=== PATIENT | male | born 1995 | race Caucasian/White ===

== ENCOUNTER → 2017-10-15 | Outpatient (CLI) | payer BC ==
--- NOTE | 2017-10-16 06:42 | PAP/PSG TECHNICIAN REPORT ---
[facility] Unix Administrator Polysomnogram Report Study name: None Report date: 10/16/2017 Study date: 10/15/2017 Referring Physician: DR. VAN CHOPRA Name: PADDY BEAR Interpreting Physician: Herb Morejon D.O. Date of : 1995 Unix Administrator: Richard Chiang RPSSHAN. Sex: Male Age: 22 StudyType: PSG Weight: 188 lbs Height: 22 years, Height 5' 7" BMI: 29.44 Medications: EXCEDRIN, TYLENOL Patient History PATIENT HAS HISTORY OF DAYTIME SLEEPINESS, SNORING AND GASPING FOR AIR. SOMETIMES, HE HAS TROUBLE FALLING ASLEEP AT NIGHT. HE GENERALLY DOES GO TO BED UNTIL 12 OR 1 AM AND SOMETIMES MAY FALL ASLEEP BETWEEN 2 AND 3 AM. HE IS HERE TODAY FOR AN EVALUATION FOR KAREL. ESS = 3 RM 5 Parameters Monitored NPSG: E1-M2, E2-M1, Fp1-M2, Fp2-M1, F3-M2, F4-M2, F4-M1, C3-M2, C4-M2, C4-M1, O1-M2, O2-M2, O2-M1, T3-M2, T4-M1, P3-M2, P4-M1, CHIN1, CHIN2, HR, EKG, Legs, PFLOW, SNOR, FLOW, CFLOW, Tidal Volume, THOR, ABDO, SpO2, PLTH, CPRESS, ETCO2 Wave, ETCO2, pH Sleep Architecture Sleep Stages Time at Lights Off 10:45:43 PM STAGES Time (min.) TST (%) Time at Lights On 5:40:13 AM Wake 214.5 -- Total Recording Time (TRT) 415.00 min. N1 16.5 8 Total Sleep Period (TSP) 368.5 min. N2 116.5 58 Total Sleep Time (TST) 200.0min. N3 53.5 27 Awake Time 214.5 min. REM 13.5 7 Wake after Sleep Onset 168.5 min. Sleep Efficiency (SE) 48 % Sleep Onset Latency (TYSON) 46.0 min. Number of Stage 1 Shifts None Awakenings 7 Stage Changes 32 Number of REM periods 1 REM 13.5 7 REM Latency 355.0 min. NREM 186.5 93 Body Position Analysis Supine Right Left Side Prone Vertical Total Sleep Time (min.) 125.3 77.5 91.8 169.35 0.0 0.0 Total Sleep Time (%) 15% 39% 46% 85 0% N/A% Total Sleep Time REM (min.) 0.0 13.5 0.0 None 0.0 0.0 Total Sleep Time NREM (min.) 30.7 64.0 91.8 None 0.0 0.0 Intermittent Wake (min.) 94.6 54.8 65.0 None 0.0 0.0 Total Sleep Period (%) 28% None None None None None Arousals Myoclonus (PLM) * Events Count Index Events Count Index Spontaneous 30 9 Events Awake (PLMW) 116 32.4 Respiratory 27 8.4 Events Asleep w/ Arousal (PLMA) 2 0.6 PLM 2 1 Events Asleep w/o Arousal (PLMS) 43 12.9 Snoring 1 0 Total Asleep 45 13.5 Total 60 18 Total 161 23 Respiratory Analysis * CA OA MA CH H RERA Total Count 0 5 0 0 53 0 58 Index 0.0 1.5 0.0 0 15.9 0 17.4 Mean Duration 0.0 21.4 0.0 0.00 19.2 0.0 19.4 Longest Duration 0.0 26.4 0.0 0.00 0.0 0.0 28.1 Respiratory Event Summary Total Supine ~Supine Right Left Prone REM NREM Apneas Count 5 5 0 0 0 N/A 0 5 Index 1.5 10 0 0.0 0.0 N/A 0 2 Hypopneas (4% Desat) Count 53 40 13 8 5 N/A 1 52 Index 15.9 78.3 5 6.2 3.3 N/A 4.4 16.7 Apneas & All Hypopneas Count 58 45 13 8 5 N/A 1 57 Index 17.4 88 5 6 3 N/A 4.4 18.3 Respiratory Events (School Program Director+All Hyp+RERA) Count 58 45 13 8 5 N/A 1 57 Index 17.4 88 5 6.2 3.3 N/A 4.4 18.3 Respiratory Related Arousal Count 27 45 0 0 0 N/A 0 28 Index 8.4 55 0 0 0 N/A 0 9 Snoring Analysis Supine Right Left Prone REM NREM Total Snore duration 2.3 min Snores count 10 1 112 N/A 1 122 123 Snore mean duration 1.1 Sec Snores index 20 1 73 N/A 4.4 39.2 36.9 TST with snoring (%) 1.2% Desaturation Event Summary: Minimum %SpO2 Event Count Mean/Min/Max Duration(sec.) Desaturation Index % Time In Bed > 90 74 22.4 / 6.8 / 57.5 11.8 93.0 86 - 90 19 17.9 / 6.8 / 25.5 44.4 6.3 81 - 85 0 N/A 0.0 0.6 76 - 80 0 N/A 0.0 0.0 71 - 75 0 N/A 0.0 0.0 66 - 70 0 N/A 0.0 0.0 61 - 65 0 N/A 0.0 0.0 56 - 60 0 N/A 0.0 0.0 51 - 55 0 N/A 0.0 0.0 < 50 0 N/A 0.0 0.0 Total REM NREM Awake <50% 0.0 min. 0.0 min. 0.0 min. 0.0 min. 51 - 60% 0.0 min. 0.0 min. 0.0 min. 0.0 min. 61 - 70% 0.0 min. 0.0 min. 0.0 min. 0.0 min. 71 - 80% 0.0 min. 0.0 min. 0.0 min. 0.0 min. 81 - 90% 28.2 min. 0.2 min. 21.2 min. 6.9 min. 91 - 100% 376.3 min. 13.3 min. 163.9 min. 199.0 min. Average 92 93 92 93 Minimum SpO2 82 87 82 85 Desaturation Event Index 11.0 4.4 18.3 5.0 # Desat. Events below 89% 43 1 40 2 Time(%) with Saturation below 89% 2.6 0.0 2.5 0.1 Time(min.) with Saturation below 89% 10.6 0.1 10.0 0.6 Time (mins) REM (mins) NREM (mins) % of TST SpO2 Below 90% 48 1 N47 6.3 SpO2 Below 88% 14 0 0 3 Heart Rate Analysis Min (bpm) Max (bpm) Average (bpm) Awake 42 127 80 NREM 56 115 74 REM 74 92 84 Overall 56 115 74 Supplemental O2 Values Minimum O2 level: None Value Start Time End Time Unix Administrator Comments Mr. Bear slept in the right, left and supine positions. No cardiac arrhythmia noted. Leg movements noted. No bruxism noted. Snoring was noted and scored as a 2 on a scale of 1 through 5. (0=no snoring, 5=snoring loud enough to be heard through a closed door or down the rodriguez way) Mr. Bear awoke to use the restroom 1 time during the night. Mr. Bear stated I did not sleep as well as I do when I am in my own bed. The final report will be interpreted and signed by a sleep physician. The completed physician report will then be placed in the patient medical record. Therapy (cm H2O) 0 TIB (min.) 414.5 TST (min.) 200.0 Sleep Onset (min.) 46.0 REM Onset From Sleep (min.) 355.0 Sleep Efficiency % 48 Wakefulness (%) 52 Wakefulness (min.) 214.5 NREM 1 (%) 8 NREM 1 (min.) 16.5 NREM 2 (%) 58 NREM 2 (min.) 116.5 NREM 3 (%) 27 NREM 3 (min.) 53.5 REM (%) 7 REM (min.) 13.5 # Arousals 60 Arousal Index 18 # Snore 123 Snore Index 36.9 AHI 17.4 AHI Supine 88 AHI Non-Supine 5 NREM AHI 18.3 REM AHI 4.4 RDI 17.4 # Obstructive Apnea 5 # Central Apnea 0 # Mixed Apnea 0 # Hypopneas 53 RERAs 0 Total Respiratory Events 79 Time Below SpO2 89% (min.) 10.1 Mean NREM SpO2 (%) 92 Mean REM SpO2 (%) 93 Mean Sleep SpO2 (%) 92 Min NREM SpO2 (%) 82 Min REM SpO2 (%) 87 Position Supine (min.) 125.3 Position Non-supine (min.) 169.3 LM Index Sleep 13.5 LM Index NREM 13.5 LM Index REM 13.3 Mean Heart Rate (bpm) 74 Min Heart Rate (bpm) 56
--- NOTE | 2017-10-17 20:36 | Sleep Study ---
Sleep Study Report Date of Service: 10/15/2017 Sleep Study Report Clinical data: The patient is referred by Dr. Jaxon Guzman for an overnight sleep study. He is a 22-year-old male who has a history of snoring, nocturnal gasping, insomnia, and daytime sleepiness. His [place] score is 3. The patient has a history of markedly enlarged tonsils. His BMI is 29.44. Sleep architecture: The total sleep period was 368.5 minutes. The total sleep time was 200 minutes. The sleep efficiency was severely reduced to 48 percent. The sleep latency was prolonged to 46 minutes. Wake after sleep onset was prolonged to 168.5 minutes. The REM latency was prolonged to 355 minutes. There was only 1 REM period during the night. Sleep consisted of stage N1 8 percent, stage N2 58 percent, stage N3 27 percent, stage REM 7 percent. Arousal data: The patient had a total of 60 arousals including 30 spontaneous arousals, 27 respiratory arousals, 2 PLM arousals, and 1 snoring arousal. The arousal index was 18. PLM data: The patient had a total of 45 periodic limb movements of sleep for a PLM index of 13.5. There were only 2 arousals associated with limb movements for a PLM arousal index of 0.6. EKG: The cardiac rhythm was normal sinus with some degree of sinus arrhythmia. The cardiac rates ranged from 56-115 with an average heart rate of 74 beats per minute. Respiratory data: The patient had a total of 58 respiratory events including 5 obstructive apneas and 53 hypopneas. Hypopneas were scored according to the 4 percent desaturation rule. The longest apnea was 26.4 seconds. The mean duration of the hypopneas were 5th 19.2 seconds. The apnea-hypopnea index was moderately elevated at 17.4 events per hour. This reflects moderate sleep apnea. Oximetry data: The average saturation for the night was 92 percent. The minimum saturation was 82 percent. There was a total of 10.6 minutes with saturations less than 89 percent. Life Skills Educator comments: The patient slept on the right, left, and supine positions. No cardiac arrhythmia noted. Leg movements noted. No bruxism noted. Snoring was noted and scored as a 2 on a scale of 1 through 5. The patient stated he did not sleep as well as he does in his own bed. Impressions: 1. Obstructive sleep apnea-moderate 2. Insomnia Comments: The patient had a severe decrease in sleep efficiency. This was related to a markedly prolonged sleep latency. In addition he had a long episode of wake from approximately 12:20 a.m. until 2:56 a.m. where he did not sleep. There was a history of insomnia given. Most of the patient's events occurred in the last 1/3 of the night. Thus he did not qualify for a split study. He did have moderate sleep apnea. Oxygenation was normal for most of the night but there were some desaturations at the time when he had the most frequent respiratory events. Recommendations: 1. Consideration could be given to a trial of nasal CPAP if desired. 2. Consideration could be given to a tonsillectomy if clinically indicated. This is deferred to Dr. Guzman. 3. Weight loss is advised in light of the elevation of BMI to 29.44. Copies To 1: Jaxon Barker M.D.; Herb Morejon DO; Jaxon Guzman MD
== END | disposition home or self-care (01) ==
LOC: C.NEUR 20:00
DX: G47.33 Obstructive sleep apnea (adult) (pediatric) (principal)

== ENCOUNTER → 2017-11-29 | Outpatient (CLI) | payer BC ==
[2017-11-29 12:53] LABS: BASO % 0.7 %; BASO ABS # 0.07 K/uL (0-0.2); EOS % 11.4 %; EOS ABS # 1.11 K/uL (0-0.5); HEMATOCRIT 45.7 % (42-52); HEMOGLOBIN 16.1 g/dL (14.0-18.0); IG# 0.02 K/uL (0.00-0.02); LYMPH % 38.1 %; LYMPH ABS # 3.72 K/uL (1.2-3.4); MEAN CELL VOLUME 89.3 fL (80-100); MEAN CORPUSCULAR HEMOGLOBIN 31.4 pg (25-34); MEAN CORPUSCULAR HGB CONC 35.2 g/dl (32-36); MEAN PLATELET VOLUME 12.2 fL (7.4-10.4); MONO % 9.3 %; MONO ABS # 0.91 K/uL (0.11-0.59); NEUT % 40.3 %; NEUT ABS # 3.94 K/uL (1.4-6.5); PLATELET COUNT 362 K/uL (130-400); RED CELL DISTRIBUTION WIDTH CV 13.1 % (11.5-14.5); WHITE BLOOD COUNT 9.77 K/uL (4.8-10.8)
[2017-11-29 13:02] LABS: PTT PATIENT 33.2 SECONDS (21.0-31.0)
[2017-11-29 13:14] LABS: POTASSIUM 3.9 mmol/L (3.5-5.1)
== END | disposition home or self-care (01) ==
LOC: C.LAB 11:25
DX: Z01.818 Encounter for other preprocedural examination (principal)

== ENCOUNTER → 2017-12-01 | Day surgery (SDC) | payer BC ==
[2017-11-24 13:14] VITALS: Ht 170.2 cm; Wt 81.8 kg
[~2017-12-01] VITALS: Ht 170.2 cm; Wt 81.8 kg
[~2017-12-01] MED LIST: ACETAMINOPHEN/HYDROCODONE ELIX 15 ML/CUP UDP ONE; ATROPINE SULFATE 0.1 MG/ML 5ML SYR IV PRN; BACITRACIN/POLYMYXIN B OINT 15 GM TUBE EXT ONE; DEXAMETHASONE SOD INJ 4 MG/ML VIAL ONE; EpHEDrine SULFATE INJ 50 MG/ML AMP IV PRN; FENTANYL CITRATE INJ 50 MCG/1 ML 2 ML VIAL ONE; GLYCOPYRROLATE INJ 0.2 MG/ML VIAL ONE; HYDROCODONE/APAP 2.5MG/108MG ELIX 5 ML UDP PO PRN; HYDROmorphone INJ 0.5 MG/0.5 ML SYR IV PRN; LACTATED RINGER'S 1000ML 1,000 ML IV SCH; LIDOCAINE 2% JELLY 5 ML TUBE EXT ONE; LIDOCAINE HCL 2% 2 ML VIAL (20MG/ML) ONE; MIDAZOLAM HCL 1 MG/ML 2ML VIAL ONE; NEOSTIGMINE METHYLSULFATE 5 MG/5 ML SYR ONE; ONDANSETRON INJ 2 MG/ML 2 ML VIAL IV PRN; ONDANSETRON INJ 2 MG/ML 2 ML VIAL ONE; PROMETHAZINE HCL INJ 12.5 MG in SODIUM CHLORIDE 0.9% 50ML 50 ML IV PRN; PROMETHAZINE HCL INJ 25 MG/ML 1 ML VIAL ONE; PROPOFOL IV EMULSION 10 MG/ML 20 ML VIAL IV ONE
--- NOTE | 2017-12-01 07:26 | History and Physical: Surg Cnt ---
History & Physical Date Dec 01, 2017. Chief Complaint TONSILLAR HYPERTROPHY WITH MODERATE KAREL History of Present Illness The patient is a 22 year old male with complaints of TONSILLAR HYPERTROPHY WITH MODERATE KAREL WITH NPSG SHOWING RDI OF 17. PT DESIRES TONSILLECTOMY FOR RX OF HIS KAREL RATHER THAN CPAP. Past Medical/Surgical History PMH: ABOVE, ASTHMA PSH: NONE Additional History Hepatic Disease: No Endocrine Disorder: No Kidney Disease: No Hypertension: No Heart Disease: No Bleeding Tendencies: No Infectious Diseases: No Allergies Coded Allergies: NO KNOWN DRUG ALLERGIES (Verified Allergy, Unknown, ., 12/01/17) Home Medications No Active Prescriptions or Reported Meds Physical Examination Skin: warm/dry, no rash Eyes: normal inspection, EOMI, sclerae normal ENT: + pertinent finding (3+ TONSILS WITH L TONSIL APPEARING LARGER THAN R) Head: normocephalic, atraumatic Neck: supple, no adenopathy, trachea midline Respiratory/Chest: lungs clear, normal breath sounds, no respiratory distress Cardiovascular: regular rate, rhythm, no edema, no murmur Neurologic/Psych: no motor/sensory deficits, alert, normal reflexes, oriented x 3 Diagnosis TONSILLAR HYPERTROPHY WITH MODERATE KAREL Plan of Treatment TONSILLECTOMY
--- NOTE | 2017-12-01 08:55 | [facility] Operative Report ---
Operative Report Operative Date Dec 01, 2017. Pre-Operative Diagnosis Obstructive sleep apnea, tonsillar hypertrophy Post-Operative Diagnosis same Procedure(s) Performed Tonsillectomy Surgeon Dr. Guzman Lube Man Surgeon(s) none Estimated Blood Loss 5 Findings 1. 4+ TONSILS Specimens A) Right Tonsil B)Left Tonsil I attest to the content of the Intraoperative Record and any orders documented therein. Any exceptions are noted below.
--- NOTE | 2017-12-01 08:57 | Discharge Instructions ---
Discharge Instructions Date of Service Dec 01, 2017. Admission Reason for Admission: Obst Sleep Apnea, Tonsillar Hypertrophy Discharge Discharge Diagnosis / Problem: SAME Discharge Goals Goal(s): Therapeutic intervention Activity Recommendations Activity Limitations: as noted below LIGHT ACTIVITY FOR 2 WEEKS; NO LIFTING > OR = 15LBS FOR 2 WEEKS; NO RUNNING FOR 2 WEEKS; NO DRIVING WHILE ON LORTAB . Current Hospital Diet Patient's current hospital diet: Full Liquid Diet Discharge Diet Recommended Diet: Full Liquid Diet Diet Texture: Mechanical Soft (ground) Procedures Procedures Performed: Tonsillectomy Pending Studies Studies pending at discharge: no Medical Emergencies . Who to Call and When: Medical Emergencies: If at any time you feel your situation is an emergency, please call 911 immediately. . Non-Emergent Contact Non-Emergency issues call your: Surgeon . . "Provider Documentation" section prepared by Jaxon Guzman. . VTE Core Measure Inpt VTE Proph given/why not?: SCD's
--- NOTE | 2017-12-01 09:09 | OPERATIVE REPORT ---
DATE OF OPERATION: 12/01/2017 PREOPERATIVE DIAGNOSES: 1. Tonsillar hypertrophy. 2. Obstructive sleep apnea. POSTOPERATIVE DIAGNOSES: Same. PROCEDURE: Bilateral tonsillectomy. SURGEON: Jaxon Guzman MD. ANESTHESIA: General endotracheal. ESTIMATED BLOOD LOSS: 5 mL. FINDINGS: 4+ tonsils bilaterally. SPECIMENS: Right and left tonsil sent separately for permanent pathologic specimen. COMPLICATIONS: None. INDICATIONS FOR THE PROCEDURE: The patient is a 22-year-old male with a history of obstructive sleep apnea with an apnea hypopnea index of 17. He also has significant tonsillar hypertrophy with 3-4+ tonsils bilaterally. He presents for the above-mentioned procedure on an outpatient elective basis. DESCRIPTION OF PROCEDURE: After informed consent had been obtained from the patient, the patient was wheeled to the operating room and placed on the operating table in the supine position. Monitors were placed. After induction of general endotracheal anesthesia, the table was turned to 90 degrees and the patient's head and neck were gently extended. Antibiotic ointment was applied to lips and a mouth gag was carefully inserted, opened, and stabilized with a roll of towels. The palate was inspected and was found to be normal. An Allis clamp was used to grasp the right tonsil in the superior pole and Bovie electrocautery was used to remove the tonsil in the capsular plane with care to preserve the underlying mucosa and musculature of the anterior and posterior tonsillar pillars. The left tonsil was then removed in a similar fashion. The intraoperative findings were 4+ tonsils bilaterally. These were sent separately for permanent pathological assessment. The mouth gag was released for 1 minute. This was reopened and hemostasis was confirmed. An orogastric tube was placed and the stomach was suctioned free of air and stomach contents. 2% lidocaine jelly was placed in the bilateral tonsillar fossae for added anesthetic effect. This marked the end of the case. The patient tolerated the procedure well and there were no apparent complications. The patient was extubated and transferred to recovery room in stable condition. I attest to the content of the Intraoperative Record and any orders documented therein. Any exception s are noted below.
[2017-12-01] MEDS: FENTANYL CITRATE INJ 50 MCG/1 ML 2 ML VIAL IV PRN ×2 (09:27→09:34)
[2017-12-01 09:58] VITALS: TEMP 36.4
--- NOTE | 2017-12-01 10:26 | Anesthesiology Progress Note ---
Anesthesia Post Op Note Date & Time Dec 01, 2017 at 10:26 Vital Signs Pain Intensity: 8.0 Vital Signs Past 12 Hours Date Time Temp Pulse Resp B/P (MAP) Pulse Ox O2 Delivery O2 Flow Rate FiO2 12/01/17 09:50 123/80 12/01/17 09:47 90 9 12/01/17 09:47 88 9 99 12/01/17 09:45 118/96 12/01/17 09:42 106 16 12/01/17 09:42 112 16 97 12/01/17 09:41 36.5 92 12 140/74 96 Room Air 12/01/17 09:40 140/74 12/01/17 09:37 92 9 12/01/17 09:37 95 9 99 12/01/17 09:35 132/80 12/01/17 09:32 83 20 12/01/17 09:32 87 20 99 12/01/17 09:31 86 11 12/01/17 09:31 87 11 120/77 100 12/01/17 09:26 84 10 12/01/17 09:26 84 10 100 12/01/17 09:25 113/82 12/01/17 09:21 85 14 100 12/01/17 09:21 83 14 12/01/17 09:20 120/83 12/01/17 09:16 119/86 12/01/17 09:11 104 12 12/01/17 09:11 102 12 100 12/01/17 09:10 117/79 12/01/17 09:09 128/84 12/01/17 09:06 36.8 112 24 128/84 95 Humidified Oxygen 6 Diffusion Mask 12/01/17 07:10 36.9 103 18 126/86 (99) 96 Room Air Notes Mental Status: alert / awake / arousable, participated in evaluation Pt Amnestic to Procedure: Yes Nausea / Vomiting: adequately controlled Pain: adequately controlled Airway Patency, RR, SpO2: stable & adequate BP & HR: stable & adequate Hydration State: stable & adequate Anesthetic Complications: no major complications apparent
[2017-12-01 11:15] VITALS: BP 122/80; PULSE 95; O2SAT 96
== END | disposition home or self-care (01) ==
LOC: X.SURG 06:39
DX: J35.1 Hypertrophy of tonsils (principal); G47.33 Obstructive sleep apnea (adult) (pediatric); J45.909 Unspecified asthma, uncomplicated; K21.9 Gastro-esophageal reflux disease without esophagitis; F32.9 Major depressive disorder, single episode, unspecified